=== PATIENT | male | born 1935 | race Two or more races ===

== ENCOUNTER → 2018-08-09 | Outpatient (CLI) | payer MEDICARE, BC ==
--- NOTE | 2018-08-09 13:50 | RAD ---
RIBS LEFT, CHEST PA LATERAL History: FALL 1 WEEK AGO LEFT SIDED RIB PAIN Comparison: None. Findings: Right chest shunt catheter is seen. There is no discontinuity. The cardiomediastinal silhouette is normal. Pulmonary vasculature is normal. The lungs are clear. No pleural effusion or pneumothorax is seen. There is degenerative endplate spurring of the thoracic spine. 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 No acute displaced left rib fracture is identified. A nondisplaced or subtle rib fracture could be obscured radiographically. IMPRESSION: 1. No acute cardiopulmonary process. 2. No acute displaced left rib fracture. Electronically signed by: Pradeep Elaine MD (08/09/2018 1:47 PM) [id number]
== END | disposition home or self-care (01) ==
LOC: RAD 13:01
PROVIDERS: ATTEND Internal Medicine
DX: R07.81 Pleurodynia (principal); R05 Cough; M51.84 Other intervertebral disc disorders, thoracic region; W19.XXXA Unspecified fall, initial encounter; Y93.89 Activity, other specified; Y92.89 Other specified places as the place of occurrence of the external cause; Y99.8 Other external cause status
CPT/HCPCS: 71046; 71100